=== PATIENT | female | born 1940 | race Caucasian/White ===

== ENCOUNTER 2024-01-16 14:59 | Outpatient (CLI) | payer MEDICARE, SELFPAY ==
[2024-01-16] MEDS: HEPARIN SODIUM LOCK FLUSH 500 UNITS/5 ML SYRINGE (15:36)
[2024-01-16 15:40] LABS: Basophils Absolute Auto 0.03 K/mm3 (0.00-0.10); Basophils Percent Auto 0.3 % (0.0-1.0); Eosinophils Absolute Auto 0.09 K/mm3 (0.02-0.50); Eosinophils Percent Auto 0.8 % (1.0-6.0); Hematocrit 27.8 % (35.0-42.0); Hemoglobin 9.1 g/dL (11.7-13.8); Immature Granulocyte Absolute 0.05 K/mm3 (0.00-0.00); Immature Granulocyte Percent A 0.5 % (0.0-0.0); Lymphocytes Absolute Auto 0.84 K/mm3 (1.10-4.50); Lymphocytes Percent Auto 7.9 % (18.0-42.0); Mean Corpuscular HGB Conc 32.7 g/dL (32-36); Mean Corpuscular Hemoglobin 29.3 pg (27.0-31.0); Mean Corpuscular Volume 89.4 fL (78.0-102.0); Mean Platelet Volume 9.3 fl (9.2-11.8); Monocytes Absolute Auto 1.43 K/mm3 (0.10-0.90); Monocytes Percent Auto 13.5 % (2.0-11.0); Neutrophils Absolute Auto 8.18 K/mm3 (1.70-7.20); Platelet Count Result 343 K/mm3 (150-420); Red Blood Count 3.11 M/mm3 (4.20-5.40); Red Cell Distribution Width 18.6 % (11.6-14.4); White Blood Count 10.6 K/mm3 (4.8-10.8)
[2024-01-16 15:48] LABS: INR 1.1; Partial Thromboplastin Time 30.2 Sec (23.9-30.70); Prothrombin Time 11.7 Seconds (9.50-12.1)
[2024-01-16 15:57] LABS: Alanine Aminotransferase 30 U/L (14-59); Albumin Level 2.7 g/dL (3.4-5.0); Alkaline Phosphatase 145 U/L (46-116); Anion Gap 14 mmol/L (4-12); Aspartate Amino Transferase 24 U/L (15-37); Bilirubin,Total 0.5 mg/dL (0.00-1.00); Blood Urea Nitrogen 20 mg/dL (7-18); Calcium 8.8 mg/dL (8.5-10.1); Carbon Dioxide 22 mmol/L (21-32); Chloride 100 mmol/L (98-108); Estimated Glomerular Filt Rate 45; Glucose 117 mg/dL (70-99); Iron 16 ug/dL (50-170); Osmolality Calculated 285 mOsm/kg (285-295); Percent Iron Saturation 8 % (12-57); Potassium 3.9 mmol/L (3.5-5.1); Sodium 136 mmol/L (136-145); Total Protein 7.6 g/dL (6.4-8.2)
[2024-01-18 05:28] LABS: Hepatitis B Surface Antigen NON-REACTIVE (NON-REACTIVE)
[2024-01-18 06:29] LABS: Hepatitis A Antibody IgM NON-REACTIVE (NON-REACTIVE); Hepatitis B Core Antibody NON-REACTIVE (NON-REACTIVE); Hepatitis C Virus Antibody NON-REACTIVE (NON-REACTIVE)
[2024-01-20 06:53] LABS: Carcinoembryonic Antigen 9559.3 ng/mL
== END 2024-01-16 15:00 | disposition home or self-care (01) ==
PROVIDERS: PCP Family Medicine; Visit Provider Internal Medicine Hematology
DX: C19 Malignant neoplasm of rectosigmoid junction (principal)
CPT/HCPCS: 36415; 36591; 80053; 80074; 82378; 83540; 83550; 85025; 85610; 85730; 86850; 86900; 86901

== ENCOUNTER 2024-02-06 10:27 | Outpatient (CLI) | payer MEDICARE, SELFPAY ==
[2024-02-06 11:10] LABS: Hematocrit 24.7 % (35.0-42.0); Hemoglobin 8.1 g/dL (11.7-13.8); Immature Platelet Fraction Pct 0.7 % (1.0-7.0); Mean Corpuscular HGB Conc 32.8 g/dL (32-36); Mean Corpuscular Hemoglobin 27.9 pg (27.0-31.0); Mean Corpuscular Volume 85.2 fL (78.0-102.0); Mean Platelet Volume 8.4 fl (9.2-11.8); Platelet Count Result 705 K/mm3 (150-420); Red Cell Distribution Width 18.5 % (11.6-14.4); White Blood Count 12.8 K/mm3 (4.8-10.8)
[2024-02-06 11:24] VITALS: BMI 29.3
[2024-02-06 11:25] VITALS: BP 156/80; PULSE 85; RESP 16; TEMP 35.7; O2SAT 100
[2024-02-06 11:26] LABS: Band Neutrophils Percent 1 % (0-6); Basophils Percent Manual 0 % (0-1); Eosinophils Absolute Manual 0.51 K/mm3 (0.02-0.50); Eosinophils Percent Manual 4 % (1-6); Lymphocytes Absolute Manual 0.64 K/mm3 (1.1-4.5); Lymphocytes Percent Manual 5 % (18-44); Metamyelocytes Percent 2 %; Monocytes Absolute Manual 0.76 K/mm3 (0.1-0.90); Monocytes Percent Manual 6 % (3-9); Myelocytes Percent 4 %; Neutrophils Absolute Manual 10.11 K/mm3 (1.7-7.2); Neutrophils Percent Manual 78 % (46-73); Platelet Estimate Increased (Adequate); Total Cells Counted 100
[2024-02-06 11:33] LABS: Alanine Aminotransferase 115 U/L (14-59); Alkaline Phosphatase 626 U/L (46-116); Anion Gap 11 mmol/L (4-12); Aspartate Amino Transferase 58 U/L (15-37); Bilirubin,Total 0.6 mg/dL (0.00-1.00); Blood Urea Nitrogen 20 mg/dL (7-18); Calcium 9.6 mg/dL (8.5-10.1); Carbon Dioxide 24 mmol/L (21-32); Chloride 96 mmol/L (98-108); Estimated CRCL calculation 34 ml/min; Estimated Glomerular Filt Rate 44; Glucose 127 mg/dL (70-99); Osmolality Calculated 276 mOsm/kg (285-295); Potassium 4.5 mmol/L (3.5-5.1); Sodium 131 mmol/L (136-145); Thyroid Stimulating Hormone 6.26 uIU/mL (0.36-3.74); Total Protein 7.7 g/dL (6.4-8.2)
[2024-02-06] MEDS: PEMBROLIZUMAB 200 MG in SODIUM CHLORIDE 0.9% IV 100 ML IVPB (12:15)
[2024-02-06] MEDS: HEPARIN SODIUM LOCK FLUSH 500 UNITS/5 ML SYRINGE IV PUSH (13:00)
[2024-02-06 13:15] VITALS: BP 125/70; PULSE 78; RESP 14; TEMP 36.6; O2SAT 97
--- NOTE | 2024-02-06 13:17 | PC.NURSE ---
Patient tolerated #1 Pembrolizumab treatment well today. SEE MAR/patient care notes.
[2024-02-07 07:14] LABS: Cortisol Random 20.3 mcg/dL
== END 2024-02-06 10:28 | disposition home or self-care (01) ==
PROVIDERS: PCP Family Medicine; Visit Provider Internal Medicine Hematology
DX: Z51.11 Encounter for antineoplastic chemotherapy (principal); C18.9 Malignant neoplasm of colon, unspecified; R53.83 Other fatigue; Z79.899 Other long term (current) drug therapy
CPT/HCPCS: 36415; 80053; 82533; 84443; 85025; 85055; 96413; J9271

== ENCOUNTER 2024-02-25 08:24 | Outpatient (CLI) | payer MEDICARE, SELFPAY ==
[2024-02-25 09:21] LABS: Basophils Absolute Auto 0.05 K/mm3 (0.00-0.10); Basophils Percent Auto 0.7 % (0.0-1.0); Eosinophils Absolute Auto 0.33 K/mm3 (0.02-0.50); Eosinophils Percent Auto 4.4 % (1.0-6.0); Hematocrit 29.4 % (35.0-42.0); Hemoglobin 9.4 g/dL (11.7-13.8); Immature Granulocyte Absolute 0.06 K/mm3 (0.00-0.00); Immature Granulocyte Percent A 0.8 % (0.0-0.0); Lymphocytes Absolute Auto 0.87 K/mm3 (1.10-4.50); Lymphocytes Percent Auto 11.6 % (18.0-42.0); Mean Corpuscular Hemoglobin 27.4 pg (27.0-31.0); Mean Corpuscular Volume 85.7 fL (78.0-102.0); Mean Platelet Volume 9.1 fl (9.2-11.8); Monocytes Absolute Auto 0.63 K/mm3 (0.10-0.90); Monocytes Percent Auto 8.4 % (2.0-11.0); Neutrophils Absolute Auto 5.53 K/mm3 (1.70-7.20); Neutrophils Percent Auto 74.1 % (50.0-70.0); Platelet Count Result 421 K/mm3 (150-420); Red Blood Count 3.43 M/mm3 (4.20-5.40); Red Cell Distribution Width 17.7 % (11.6-14.4); White Blood Count 7.5 K/mm3 (4.8-10.8)
[2024-02-25 09:44] LABS: Alanine Aminotransferase 47 U/L (14-59); Albumin Level 2.8 g/dL (3.4-5.0); Alkaline Phosphatase 174 U/L (46-116); Anion Gap 14 mmol/L (4-12); Aspartate Amino Transferase 85 U/L (15-37); Bilirubin,Total 0.4 mg/dL (0.00-1.00); Blood Urea Nitrogen 30 mg/dL (7-18); Calcium 9.4 mg/dL (8.5-10.1); Carbon Dioxide 21 mmol/L (21-32); Chloride 101 mmol/L (98-108); Estimated Glomerular Filt Rate 37; Glucose 111 mg/dL (70-99); Iron 51 ug/dL (50-170); Osmolality Calculated 289 mOsm/kg (285-295); Percent Iron Saturation 22 % (12-57); Potassium 3.8 mmol/L (3.5-5.1); Sodium 136 mmol/L (136-145); Total Protein 7.1 g/dL (6.4-8.2)
[2024-02-25 10:15] LABS: Free T4 Free Thyroxine Reflex 1.22 ng/dL (0.76-1.46); Thyroid Stimulating Hormone Reflex 5.82 u/IU/mL (0.36-3.74)
[2024-02-27 05:33] LABS: Cortisol Random 31.5 mcg/dL
== END 2024-02-25 08:25 | disposition home or self-care (01) ==
LOC: CHSLAB 08:27
PROVIDERS: PCP Family Medicine; Visit Provider Internal Medicine Hematology
DX: C19 Malignant neoplasm of rectosigmoid junction (principal); R53.83 Other fatigue
CPT/HCPCS: 36415; 80053; 82533; 83540; 83550; 84439; 84443; 85025; 86850; 86900; 86901

== ENCOUNTER 2024-02-27 10:54 | Outpatient (CLI) | payer MEDICARE, SELFPAY ==
[2024-02-27 11:20] VITALS: BP 100/61; PULSE 74; RESP 16; TEMP 36.6; O2SAT 96; BMI 28.6
[2024-02-27] MEDS: PEMBROLIZUMAB 200 MG in SODIUM CHLORIDE 0.9% IV 100 ML IVPB (11:28)
[2024-02-27] MEDS: HEPARIN SODIUM LOCK FLUSH 500 UNITS/5 ML SYRINGE IV PUSH (12:02)
[2024-02-27 12:10] VITALS: BP 100/63; PULSE 78; RESP 16; O2SAT 96
--- NOTE | 2024-02-27 12:11 | PC.NURSE ---
Patient tolerated Keytruda infusion well. see Mar/patient care notes.
== END 2024-02-27 10:55 | disposition home or self-care (01) ==
PROVIDERS: PCP Family Medicine; Visit Provider Internal Medicine Hematology
DX: Z51.11 Encounter for antineoplastic chemotherapy (principal); C18.9 Malignant neoplasm of colon, unspecified; Z79.899 Other long term (current) drug therapy
CPT/HCPCS: 96413; J9271